=== PATIENT | male | born 1975 | race Caucasian/White ===

== ENCOUNTER → 2017-05-10 | Day surgery (SDC) | payer OTHER ==
[~2017-05-10] MED LIST: ASAC400T PO; BUPIVACAINE HCL PF 0.5% 10 ML VIAL ONE; DOXY100T PO; GLUCTAB PO; KETOROLAC TROMETHAMINE 30 MG/ML (IVP) VIAL IV PUSH ONE; LACTATED RINGER'S 1000 ML INJ 1,000 ML ONE; MIDAZOLAM HCL 2 MG/2 ML VIAL ONE; ONDANSETRON HCL 4 MG/2 ML VIAL IV PUSH ONE; PROPOFOL 200 MG/20 ML AMP IV ONE; SULF1TAB47 PO; ceFAZolin 2 GM PREMIX 50 ML ONE
--- NOTE | 2017-05-10 17:18 | MP ---
cc: CRYS FLORES DPM DATE OF SURGERY 05/10/17 PREOPERATIVE DIAGNOSIS Right hallux ulcer with painful exostosis. POSTOPERATIVE DIAGNOSIS Right hallux ulcer with painful exostosis. PROCEDURES PERFORMED 1. Right hallux ulcer sharp excisional debridement. 2. Application of artificial skin graft. 3. Right hallux IPJ bone debridement exostectomy SPECIMEN Bone and soft tissue for pathology and x1 deep culture for micro ESTIMATED BLOOD LOSS Less than 30 mL COMPLICATIONS None ANESTHESIA general anesthesia DRAINS None. 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 He has tried multiple modalities in the past which have failed. We devised a plan to move forward with removal of the prominence likely causing the ground reactive pressure and the biomechanical forces causing the ulcerative lesion. The patient was educated he may need multiple graft applications and prolonged non-weightbearing. No guarantees were given or implied regarding the outcome. The patient understood that this may become infected. There is a risk of hallux amputation. However, we are doing everything in our power to prevent further progression of this ulcer. PROCEDURE IN DETAIL Under mild sedation, the patient is brought into the operating room, placed on the operating table in the supine position. Following the induction of general anesthesia, the right lower extremity was scrubbed, prepped and draped in the usual aseptic fashion. The foot was elevated, exsanguinated and the previously placed mid ankle tourniquet was inflated at 215 mmHg. The patient's right hallux was examined. There was noted to be an ulcer of the plantar IPJ measuring approximately 2 cm x 2 cm with 5 mm of depth. No bone or exposed tendon. However, it did appear to go to deep dermis. A linear incision was made over the medial aspect of the hallux IPJ. Sharp and blunt dissection was carried down subperiosteal and the base of the distal phalanx and the head of the proximal phalanx was identified. The flexor hallucis longus was also identified and retracted plantarward. Utilizing power instrumentation, the plantar condyles were then transected to a smooth bony contour improving the palpable appearance of the plantar aspect of the hallux much improved from before. The wound was flushed with copious amounts of normal saline, closed in layers utilizing Vicryl and nylon. Next, utilizing a 15 blade a sharp excisional debridement full thickness of the ulcer took place. A rongeur was used to take a biopsy at 12 o'clock and 6 o'clock, 12 o'clock being the most distal, 6 o'clock being the most proximal. The pneumatic tourniquet was dropped. There was a prompt hyperemic response to all digits. There was noted to be a viable bleeding base. Next, an Apligraf was then placed, sutured intact, to the plantar aspect of the foot. There was noted to be well adherence of the graft. A bulky bandage and a well-padded Interiano compressive dressing and a posterior splint was then applied. The patient was transferred from OR to PACU with all vital signs stable. He will elevate, no ice and strict non-weightbearing. He will follow up within one week. TAMAR Tristan/ /2:18 PM /5:11 PM
== END | disposition home or self-care (01) ==
LOC: ESDC 11:10
PROVIDERS: ATTEND Podiatrist Foot & Ankle Surgery
DX: E11.621 Type 2 diabetes mellitus with foot ulcer (principal); M25.774 Osteophyte, right foot; L97.519 Non-pressure chronic ulcer of other part of right foot with unspecified severity; B95.62 Methicillin resistant Staphylococcus aureus infection as the cause of diseases classified elsewhere
CPT/HCPCS: 01480; 11042; 15275; 28122; 86403; 87015; 87070; 87102; 87116; 87186; 87205; 87206; 88305; 88307; 88311; J0690; J1885; J2250; J2405; J3010; J7120; Q4101

== ENCOUNTER → 2017-11-27 | Day surgery (SDC) | payer OTHER ==
[~2017-11-27] MED LIST changes: +BUPIVACAINE HCL PF 0.25% 30 ML VIAL ONE; -BUPIVACAINE HCL PF 0.5% 10 ML VIAL ONE; -KETOROLAC TROMETHAMINE 30 MG/ML (IVP) VIAL IV PUSH ONE; -LACTATED RINGER'S 1000 ML INJ 1,000 ML ONE
--- NOTE | 2017-11-28 10:41 | MP ---
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 PROCEDURE PERFORMED Right hallux interphalangeal joint exostectomy with first metatarsal phalangeal joint arthroplasty Steiner procedure. TOURNIQUET TIME 51 minutes at a setting of 250 mmHg about the patient's right ankle. ANESTHESIA General. INJECTABLES 10 cc of 0.25% Marcaine plain. SPECIMEN None. ESTIMATED BLOOD LOSS Less than 30 mL. COMPLICATIONS None. JUSTIFICATION FOR PROCEDURE A 42-year-old diabetic male with peripheral neuropathy. He has healed the right hallux IPJ ulcer, however, he remains to have a hemorrhagic callus. We have tried offloading, however, the patient's biomechanical forces allow him to put a tremendous amount of pressure upon heel-toe push-off due to his decreased range of motion of the first MPJ and there is a possible bony regrowth of the plantar hallux right IPJ exostosis. In order to prevent further ulceration we devised a plan to move forward to change the joint and bony abnormalities. PROCEDURE IN DETAIL Under mild sedation the patient was brought into the operating room and placed on the operating table in the supine position. Following the induction of general anesthesia, local anesthesia was obtained about the right forefoot utilizing standard block fashion. The patient's right foot was then scrubbed, prepped and draped in the usual aseptic fashion. The foot was elevated and exsanguinated. The previously placed mid calf tourniquet was inflated to 250 mmHg. A linear incision was made in the medial aspect of the hallux IPJ. Sharp and blunt dissection was carried down subperiosteal and deep to the capsule. The flexor hallucis longus tendon was retracted plantarly and palpable bony exostosis was palpated at the base of the distal phalanx. This was then transected to a smooth bony contour. The wound was flushed with copious amounts of normal saline. No signs of infection or fracture or osteomyelitis. The joint capsule was closed utilizing Vicryl. Skin was closed utilizing nylon. Next, an incision was made over the dorsal aspect of the first MPJ. Sharp and blunt dissection was carried down to the extensor hallucis longus tendon. A Z-tendon lengthening approach took place allowing for reduction of hallux valgus. A linear capsule incision was made revealing the base of the proximal phalanx. It was then transected utilizing power instrumentation being careful not to violate the FHL tendon. Dorsomedial eminence was noted and this was also transected as well as dorsal eminence. There was now significant improvement with range of motion with no signs of hallux limitus. The wound was flushed with copious amounts of normal saline. The capsule was closed utilizing Vicryl. The skin was closed utilizing nylon. Upon relieving the tourniquet there was a prompt hyperemic response to all digits without any delayed capillary fill time. The patient is permitted heel weight bear only. He will ice and elevate, follow up within 3-5 days. TAMAR Tristan /1:45 PM /10:27 AM
== END | disposition home or self-care (01) ==
LOC: ESDC 11:04
PROVIDERS: ATTEND Podiatrist Foot & Ankle Surgery
DX: M20.5X1 Other deformities of toe(s) (acquired), right foot (principal); M20.21 Hallux rigidus, right foot
CPT/HCPCS: 01480; 28292; J0690; J2250; J2405; J3010